=== PATIENT | female | born 1950 | race Caucasian/White ===

== ENCOUNTER 2020-06-07 08:19 | Emergency (ER) | payer MEDICARE, BC ==
[~2020-06-07] VITALS: Ht 162.6 cm; Wt 61.4 kg
[2020-06-07 08:21] VITALS: Ht 162.6 cm; Wt 61.4 kg
[2020-06-07] MEDS ORDERED: APAP325 MG PO (08:42)
[2020-06-07] MEDS ORDERED: BIOFREEZE118 ML TOPICAL (08:43)
[2020-06-07] MEDS ORDERED: ASPIRIN325 MG PO (08:43)
[2020-06-07] MEDS ORDERED: COREG 3.1253.125 MG PO (08:43)
[2020-06-07] MEDS ORDERED: DEPAKOTE500 MG PO (08:44)
[2020-06-07] MEDS ORDERED: KEPPRA500 MG PO (08:44)
[2020-06-07] MEDS ORDERED: MEGACE400 MG/10 PO (08:45)
[2020-06-07] MEDS ORDERED: COZAAR50 MG PO (08:45)
[2020-06-07] MEDS ORDERED: POTASSIUM CHLO10 ME1 PO (08:46)
[2020-06-07] MEDS ORDERED: PROMOD LIQUID P30 M1 PO (08:46)
[2020-06-07] MEDS ORDERED: NAMENDA5 MG PO (08:46)
[2020-06-07] MEDS ORDERED: PEPCID40 MG PO (08:46)
[2020-06-07] MEDS ORDERED: SENNA LAXATIVE8.6 MG PO (08:47)
[2020-06-07] MEDS ORDERED: TOPAMAX100 MG PO (08:47)
[2020-06-07 10:26] VITALS: BP 133/62
== END 2020-06-07 10:27 | disposition home or self-care (01) ==
LOC: D.ER 08:19
DX: S51.012A Laceration without foreign body of left elbow, initial encounter (principal); S00.03XA Contusion of scalp, initial encounter; W19.XXXA Unspecified fall, initial encounter; Y93.9 Activity, unspecified; Y92.129 Unspecified place in nursing home as the place of occurrence of the external cause; I10 Essential (primary) hypertension; K21.9 Gastro-esophageal reflux disease without esophagitis; G30.9 Alzheimer's disease, unspecified; F02.80 Dementia in other diseases classified elsewhere, unspecified severity, without behavioral disturbance, psychotic disturbance, mood disturbance, and anxiety

== ENCOUNTER 2020-06-14 14:57 | Emergency (ER) | payer MEDICARE, BC ==
[~2020-06-14] VITALS: Ht 162.6 cm; Wt 59.1 kg
[~2020-06-14 14:57] MED LIST: APAP325 MG PO; ASPIRIN325 MG PO; BIOFREEZE118 ML TOPICAL; COREG 3.1253.125 MG PO; COZAAR50 MG PO; DEPAKOTE500 MG PO; KEPPRA500 MG PO; MEGACE400 MG/10 PO; NAMENDA5 MG PO; PEPCID40 MG PO; POTASSIUM CHLO10 ME1 PO; PROMOD LIQUID P30 M1 PO; SENNA LAXATIVE8.6 MG PO; TOPAMAX100 MG PO
[2020-06-14 15:02] VITALS: Ht 162.6 cm; Wt 59.1 kg
[2020-06-14 15:55] LABS: BASOPHILS 0.4 % (0-2); EOSINOPHILS 0.5 % (0-7); HEMATOCRIT 41.9 % (36.0-48.0); HEMOGLOBIN 13.7 g/dL (12-16); LYMPHOCYTES 22.1 % (15-50); MCH 32.5 pg (26.0-34.0); MCHC 32.7 g/dL (31.0-37.0); MCV 99.5 fL (80.0-100.0); MEAN PLATELET VOLUME 10.4 fL (7.4-10.4); MONOCYTES 10.6 % (2-11); NEUTROPHILS 64.4 % (40-80); PLATELET COUNT 291 10x3/uL (130-400); RBC 4.21 10x6/uL (4.00-5.40); RDW 12.9 % (11.5-14.5); WBC 10.4 10x3/uL (4.8-10.8)
[2020-06-14 16:01] LABS: CALCIUM 9.6 mg/dL (8.5-10.1); CREATININE - SERUM 1.1 mg/dL (0.6-1.3)
[2020-06-14 16:07] LABS: ALBUMIN 3.2 g/dL (3.4-5.0); BILIRUBIN - TOTAL 0.47 mg/dL (0.2-1.3); PROTEIN - SERUM 6.8 g/dL (6.4-8.2)
[2020-06-14 16:35] LABS: BILIRUBIN NEGATIVE (NEGATIVE); GLUCOSE NEGATIVE (NEGATIVE); KETONE NEGATIVE (NEGATIVE); NITRITE NEGATIVE (NEGATIVE); UROBILINOGEN NORMAL (NORMAL)
[2020-06-14 17:30] VITALS: BP 103/41
== END 2020-06-14 18:36 | disposition home or self-care (01) ==
LOC: D.ER 14:57
PROVIDERS: Family Medicine
DX: S00.83XA Contusion of other part of head, initial encounter (principal); W19.XXXA Unspecified fall, initial encounter; Y93.9 Activity, unspecified; Y92.9 Unspecified place or not applicable; I10 Essential (primary) hypertension; G30.9 Alzheimer's disease, unspecified; F02.80 Dementia in other diseases classified elsewhere, unspecified severity, without behavioral disturbance, psychotic disturbance, mood disturbance, and anxiety

== ENCOUNTER 2020-07-11 11:12 | Emergency (ER) | payer MEDICARE, BC ==
[~2020-07-11] VITALS: Ht 162.6 cm; Wt 54.5 kg
[2020-07-11 11:18] VITALS: Ht 162.6 cm; Wt 54.5 kg
[2020-07-11 12:36] LABS: BASOPHILS 0.2 % (0-2); EOSINOPHILS 1.9 % (0-7); HEMATOCRIT 39.7 % (36.0-48.0); HEMOGLOBIN 12.8 g/dL (12-16); IMMATURE GRANULOCYTES 0.6 % (0-5); LYMPHOCYTES 32.3 % (15-50); MCHC 32.2 g/dL (31.0-37.0); MCV 99.3 fL (80.0-100.0); MEAN PLATELET VOLUME 11.1 fL (7.4-10.4); MONOCYTES 7.6 % (2-11); NEUTROPHILS 57.4 % (40-80); RDW 12.8 % (11.5-14.5); WBC 8.6 10x3/uL (4.8-10.8)
[2020-07-11 12:53] LABS: ALBUMIN 2.7 g/dL (3.4-5.0); ALKALINE PHOSPHATASE 131 U/L (30-120); ALT (SGPT) 9 U/L (10-68); BILIRUBIN - TOTAL 0.46 mg/dL (0.2-1.3); CALC OSMOLALITY 274 mosm/kg (275-300); CHLORIDE - SERUM 108 mmol/L (98-107); CREATININE - SERUM 0.8 mg/dL (0.6-1.3); GLUCOSE 82 mg/dL (74-106); POTASSIUM - SERUM 3.5 mmol/L (3.5-5.1); PROTEIN - SERUM 6.7 g/dL (6.4-8.2); SODIUM 138 mmol/L (136-145); UREA NITROGEN 12 mg/dL (7-18); eGFR NON AFRICAN AMERICAN 75 mL/min (90-120)
[2020-07-11 13:10] LABS: PLATELET COUNT 182 10x3/uL (130-400)
[2020-07-11 14:05] LABS: BILIRUBIN NEGATIVE (NEGATIVE); KETONE NEGATIVE (NEGATIVE); NITRITE NEGATIVE (NEGATIVE); UROBILINOGEN NORMAL (NORMAL)
[2020-07-11 14:07] LABS: BACTERIA MODERATE /hpf (NONE SEEN); EPITHELIAL CELLS OCC /hpf (0-5); HYALINE CAST NONE SEEN /lpf (NONE SEEN); RED CELLS - URINE RARE /hpf (0-5); WHITE CELLS - URINE 0-5 /hpf (0-5)
[2020-07-11] MEDS ORDERED: KEFLEX500 MG PO (14:16)
[2020-07-11] MEDS ORDERED: MACROBID100 MG PO (14:16)
[2020-07-11 15:14] VITALS: BP 114/73
== END 2020-07-11 15:16 ==
LOC: D.ER 11:12
PROVIDERS: Emergency Medicine
DX: N39.0 Urinary tract infection, site not specified (principal); M54.2 Cervicalgia; W18.30XA Fall on same level, unspecified, initial encounter; I10 Essential (primary) hypertension; F03.90 Unspecified dementia, unspecified severity, without behavioral disturbance, psychotic disturbance, mood disturbance, and anxiety

== ENCOUNTER 2021-02-23 14:40 | Emergency (ER) | payer MEDICARE, BC ==
[~2021-02-23] VITALS: Ht 162.6 cm; Wt 77.3 kg
[~2021-02-23 14:40] MED LIST changes: +KEFLEX500 MG PO; +MACROBID100 MG PO; +TYLENOL W/CODEI1 TAB PO
[2021-02-23 14:42] VITALS: Ht 162.6 cm; Wt 77.3 kg
[2021-02-23] MEDS ORDERED: BUSPAR10 MG PO (14:52)
[2021-02-23] MEDS ORDERED: NUEDEXTA 20-101 EACH PO (14:52)
[2021-02-23] MEDS ORDERED: REMERON15 MG PO (14:52)
[2021-02-23 16:00] LABS: BASOPHILS 0.3 % (0-2); EOSINOPHILS 1.2 % (0-7); HEMOGLOBIN 13.2 g/dL (12-16); IMMATURE GRANULOCYTES 0.3 % (0-5); LYMPHOCYTE ABS# 2.69 10x3/uL (1.18-3.74); LYMPHOCYTES 35.3 % (15-50); MCH 30.8 pg (26.0-34.0); MCHC 33.8 g/dL (31.0-37.0); MCV 90.9 fL (80.0-100.0); MEAN PLATELET VOLUME 10.9 fL (7.4-10.4); MONOCYTES 6.2 % (2-11); NEUTROPHIL ABS# 4.33 10x3/uL (1.56-6.13); NEUTROPHILS 56.7 % (40-80); PLATELET COUNT 234 10x3/uL (130-400); RBC 4.29 10x6/uL (4.00-5.40); RDW 12.7 % (11.5-14.5); WBC 7.6 10x3/uL (4.8-10.8)
[2021-02-23 16:02] LABS: CALC OSMOLALITY 284 mosm/kg (275-300); CALCIUM 9.2 mg/dL (8.5-10.1); CARBON DIOXIDE 27.5 mmol/L (21.0-32.0); CHLORIDE - SERUM 109 mmol/L (98-107); CREATININE - SERUM 0.9 mg/dL (0.6-1.3); GLUCOSE 107 mg/dL (74-106); POTASSIUM - SERUM 3.9 mmol/L (3.5-5.1); SODIUM 143 mmol/L (136-145); UREA NITROGEN 12 mg/dL (7-18); eGFR NON AFRICAN AMERICAN 65 mL/min (90-120)
[2021-02-23 16:09] LABS: ALBUMIN 3.3 g/dL (3.4-5.0); ALKALINE PHOSPHATASE 66 U/L (30-120); ALT (SGPT) 10 U/L (10-68); BILIRUBIN - TOTAL 0.28 mg/dL (0.2-1.3); MAGNESIUM - SERUM 2.1 mg/dL (1.8-2.4); PROTEIN - SERUM 6.6 g/dL (6.4-8.2)
[2021-02-23 16:12] LABS: VALPROIC ACID (DEPAKOTE) < 3.0 ug/mL (50.0-100.0)
[2021-02-23 16:55] LABS: UDS - AMPHET NEGATIVE QUAL (NEGATIVE); UDS - BARB NEGATIVE QUAL (NEGATIVE); UDS - BENZO NEGATIVE QUAL (NEGATIVE); UDS - COCAINE NEGATIVE QUAL (NEGATIVE); UDS - OPIATE NEGATIVE QUAL (NEGATIVE); UDS - PCP NEGATIVE QUAL (NEGATIVE); UDS - THC NEGATIVE QUAL (NEGATIVE)
[2021-02-23 16:57] LABS: BILIRUBIN NEGATIVE (NEGATIVE); KETONE NEGATIVE (NEGATIVE); NITRITE NEGATIVE (NEGATIVE); UROBILINOGEN NORMAL mg/dL (< 2)
[2021-02-23 16:58] LABS: AMORPHOUS SEDIMENT <1+ LPF (NONE SEEN); BACTERIA MODERATE HPF (NONE SEEN); SQUAMOUS EPITHELIAL 0-5 HPF (0-4)
[2021-02-23] MEDS ORDERED: MACROBID100 MG PO (17:05)
[2021-02-23] MEDS ORDERED: CEPHALEXIN500 M1 PO (17:05)
[2021-02-23 17:40] VITALS: BP 152/77
== END 2021-02-23 17:44 ==
LOC: D.ER 14:40
PROVIDERS: Family Medicine
DX: R56.9 Unspecified convulsions (principal); N39.0 Urinary tract infection, site not specified; I10 Essential (primary) hypertension; G30.9 Alzheimer's disease, unspecified; F02.80 Dementia in other diseases classified elsewhere, unspecified severity, without behavioral disturbance, psychotic disturbance, mood disturbance, and anxiety

== ENCOUNTER 2021-04-25 13:08 | Inpatient (IN) | payer MEDICARE ==
[~2021-04-25] VITALS: Ht 162.6 cm; Wt 54.5 kg
[~2021-04-25 13:08] MED LIST changes: +BUSPAR10 MG PO; +CEPHALEXIN500 M1 PO; +NUEDEXTA 20-101 EACH PO; +REMERON15 MG PO
[2021-04-25 13:32] VITALS: BP 107/58
--- NOTE | 2021-04-25 13:58 | NUR ---
POC GLUCOSE 86. PATIENT RESPONDED WITH "OH" WHEN STUCK WITH THE LANCET.
[2021-04-25 14:12] LABS: BASOPHILS 0.3 % (0-2); EOSINOPHILS 1.8 % (0-7); HEMATOCRIT 41.1 % (36.0-48.0); HEMOGLOBIN 13.4 g/dL (12-16); LYMPHOCYTES 29.1 % (15-50); MCH 30.9 pg (26.0-34.0); MCHC 32.7 g/dL (31.0-37.0); MCV 94.4 fL (80.0-100.0); MEAN PLATELET VOLUME 10.1 fL (7.4-10.4); MONOCYTES 6.3 % (2-11); NEUTROPHILS 62.5 % (40-80); RBC 4.35 10x6/uL (4.00-5.40); RDW 14.9 % (11.5-14.5); WBC 12.1 10x3/uL (4.8-10.8)
[2021-04-25 14:17] LABS: PLATELET COUNT 156 10x3/uL (130-400)
[2021-04-25 14:20] LABS: CALC OSMOLALITY 297 mosm/kg (275-300); CALCIUM 9.3 mg/dL (8.5-10.1); CARBON DIOXIDE 28.5 mmol/L (21.0-32.0); CHLORIDE - SERUM 114 mmol/L (98-107); CREATININE - SERUM 0.7 mg/dL (0.6-1.3); GLUCOSE 94 mg/dL (74-106); POTASSIUM - SERUM 3.7 mmol/L (3.5-5.1); SODIUM 148 mmol/L (136-145); UREA NITROGEN 24 mg/dL (7-18); eGFR NON AFRICAN AMERICAN 87 mL/min (90-120)
[2021-04-25 14:36] LABS: ALBUMIN 2.5 g/dL (3.4-5.0); ALKALINE PHOSPHATASE 66 U/L (30-120); ALT (SGPT) 9 U/L (10-68); BILIRUBIN - TOTAL 0.27 mg/dL (0.2-1.3); CREATINE KINASE 18 UL (21-215); MAGNESIUM - SERUM 2.5 mg/dL (1.8-2.4); PROTEIN - SERUM 6.1 g/dL (6.4-8.2); THYROID STIMULATING HORMONE 2.38 uIU/mL (0.36-3.74); TROPONIN-I < 0.017 ng/mL (0.000-0.060)
[2021-04-25 15:31] LABS: APTT 21.1 SECONDS (22.8-39.4); INR 1.07 (0.85-1.17); PROTIME 12.8 SECONDS (11.6-15.0)
[2021-04-25 16:21] LABS: UDS - AMPHET NEGATIVE QUAL (NEGATIVE); UDS - BARB NEGATIVE QUAL (NEGATIVE); UDS - BENZO NEGATIVE QUAL (NEGATIVE); UDS - COCAINE NEGATIVE QUAL (NEGATIVE); UDS - OPIATE NEGATIVE QUAL (NEGATIVE); UDS - PCP NEGATIVE QUAL (NEGATIVE); UDS - THC NEGATIVE QUAL (NEGATIVE)
[2021-04-25 16:35] LABS: BACTERIA MOD HPF (<MOD); BILIRUBIN NEGATIVE (NEGATIVE); KETONE NEGATIVE mg/dL (< 1+); NITRITE POSITIVE (NEGATIVE); UROBILINOGEN NORMAL mg/dL (< 2); WHITE CELLS - URINE >182 HPF (0-4)
[2021-04-25 19:00] VITALS: BP 128/59
[2021-04-25 20:00] VITALS: BP 135/51
[2021-04-25 21:00] VITALS: BP 134/66
[2021-04-25 22:00] VITALS: BP 138/54
--- NOTE | 2021-04-25 22:08 | NUR ---
PT LYING SUPINE IN BED AT THIS TIME. PT PROVIDED WITH WATER UPON REQUEST. PT RE ADJUSTED IN BED TO A POSITION OF COMFORT. PT DENIES FURTHER NEEDS AT THIS TIME.
[2021-04-25 23:00] VITALS: BP 123/56
[2021-04-26] VITALS (9 sets, daily range): BP systolic 99–135; BP diastolic 47–67; Ht 162.6 cm; Wt 54.5 kg
--- NOTE | 2021-04-26 01:21 | NUR ---
PT REPOSITIONED TO A POSITION OF COMFORT AT THIS TIME. PT DENIES FURTHER NEEDS AT THIS TIME.
--- NOTE | 2021-04-26 03:26 | NUR ---
PT REPOSITIONED ON TO LEFT SIDE A THIS TIME. NO ACUTE DISTRESS NOTED, PT DENIES OTHER COMPLAINTS AT THIS TIME.
--- NOTE | 2021-04-26 05:52 | NUR ---
PT REPOSITIONED AT THIS TIME. NO ACUTE DISTRESS NOTED, BED IN LOWEST POSITION, CALL LIGHT WITHIN REACH
[2021-04-26 07:55] LABS: BASOPHILS 0.5 % (0-2); EOSINOPHILS 2.2 % (0-7); HEMATOCRIT 37.4 % (36.0-48.0); HEMOGLOBIN 12.3 g/dL (12-16); LYMPHOCYTES 30.6 % (15-50); MCH 30.8 pg (26.0-34.0); MCV 93.4 fL (80.0-100.0); MEAN PLATELET VOLUME 10.2 fL (7.4-10.4); MONOCYTES 6.7 % (2-11); PLATELET COUNT 165 10x3/uL (130-400)
[2021-04-26 08:11] LABS: CALC OSMOLALITY 292 mosm/kg (275-300); CALCIUM 9.1 mg/dL (8.5-10.1); CARBON DIOXIDE 27.6 mmol/L (21.0-32.0); CHLORIDE - SERUM 112 mmol/L (98-107); CREATININE - SERUM 0.6 mg/dL (0.6-1.3); GLUCOSE 86 mg/dL (74-106); POTASSIUM - SERUM 3.7 mmol/L (3.5-5.1); SODIUM 146 mmol/L (136-145); UREA NITROGEN 20 mg/dL (7-18); VALPROIC ACID (DEPAKOTE) 46.9 ug/mL (50.0-100.0); eGFR NON AFRICAN AMERICAN > 90 mL/min (90-120)
[2021-04-26 08:13] LABS: WBC 8.3 10x3/uL (4.8-10.8)
--- NOTE | 2021-04-26 09:34 | NUR ---
914: TOOK PATIENT MEAL TRAY AND MEDICATIONS INTO ROOM, PATIENT RESPONED TO LOUD NOISES, ASKED PATIENT IF I CAOULD ASSIST HER WITH EATING BREAKFAST AND SHE STATES NO, ASKED IF SHE WOULD TAKE HER MORNING MEDICATION AND SHE STATED NO, TRY TO EDUCATE/TELL HER THE IMPORTANCE OF HER MEDCIATIONS AND HER TAKING THEM AND THE WHOLE TIME I TALKED SHE JUST REPEATED HER SELF AND SAID NO OVER AND OVER. 931: TRIED TO PASS MEDICATIONS AGAIN, PATIENT AGAIN REPEATED NO OVER AND OVER
--- NOTE | 2021-04-26 09:51 | NUR ---
TALKED TO REHANA OLIVA TO NOTIFY THAT PATIENT IS REFUSING TO TAKE MEDICATIONS AND EAT THIS MORNING
[2021-04-27] VITALS: BP 128/64
--- NOTE | 2021-04-27 02:25 | NUR ---
PT MORE AROUSABLE, ANSWERS SOME QUESTIONS WITH MORE THEN 1 WORD REPLIES, QUIQUE PAIN OR DISCOMFORT.
[2021-04-27 04:00] VITALS: BP 177/66
[2021-04-27 08:44] VITALS: BP 150/63
--- NOTE | 2021-04-27 08:50 | NUR ---
PATIENT AAOX3 RESP EVEN AND NON LABORED, NO S/S OF DISTRESS, MEDICATIONS ADMINISTERED WITH NO COMPLICATIONS, PATIENT SWALLOWS PILLS VERY WELL, BREAKFAST CUT UP AND MILK AND COFFEE OPENED FOR PATIENT, NO FURTHER NEEDS AT THIS TIME, NIKITA GUZMAN
[2021-04-27 13:08] VITALS: BP 117/63
[2021-04-27 16:56] VITALS: BP 115/55
[2021-04-27 20:22] VITALS: BP 120/54
[2021-04-28 01:38] VITALS: BP 126/44
[2021-04-28 05:26] LABS: BASOPHILS 0.5 % (0-2); EOSINOPHILS 3.3 % (0-7); HEMATOCRIT 37.5 % (36.0-48.0); HEMOGLOBIN 12.5 g/dL (12-16); LYMPHOCYTES 41.5 % (15-50); MCHC 33.3 g/dL (31.0-37.0); MCV 93.3 fL (80.0-100.0); MONOCYTES 7.2 % (2-11); NEUTROPHILS 47.5 % (40-80); PLATELET COUNT 191 10x3/uL (130-400); RBC 4.03 10x6/uL (4.00-5.40); RDW 14.6 % (11.5-14.5); WBC 7.1 10x3/uL (4.8-10.8)
[2021-04-28 05:45] LABS: ANION GAP 10.4 mmol/L (8-16); CALCIUM 8.6 mg/dL (8.5-10.1); CARBON DIOXIDE 28.6 mmol/L (21.0-32.0)
[2021-04-28 05:50] LABS: CREATININE - SERUM 0.8 mg/dL (0.6-1.3)
[2021-04-28 06:37] VITALS: BP 148/49
--- NOTE | 2021-04-28 07:00 | NUR ---
PT LYING IN BED WITH EYES CLOSED AND HOB ELEVATED 30 DEGREES. RESP EVEN AND UNLABORED. RAISES TO VERBAL AND TACTILE STIMULI. NO DISTRESS NOTED. CLIR. BED IN LOWEST POSITION. SIDE RAILS X2
--- NOTE | 2021-04-28 12:10 | NUR ---
Nutrition Follow-up: Pt confused. Breakfast tray appeared untouched. Diet: Regular No PO intake recorded No new wt; last wt: 120# (04/26) Labs reviewed Meds noted: Remeron, Pepcid, electrolyte protocol -Encourage PO intake and honor food preferences. -+Ensure with meals. -Monitor wt. -RD will follow up within 3-4 days.
[2021-04-28 12:30] VITALS: BP 114/60
[2021-04-28 20:20] VITALS: BP 117/51
[2021-04-29 00:51] VITALS: BP 132/55
--- NOTE | 2021-04-29 03:28 | NUR ---
I have reviewed this patient and I concur with the Shift Assessment completed by the Licensed Practical Nurse today this shift.
[2021-04-29 05:13] LABS: BASOPHILS 0.3 % (0-2); EOSINOPHILS 2.6 % (0-7); HEMATOCRIT 33.8 % (36.0-48.0); HEMOGLOBIN 11.5 g/dL (12-16); LYMPHOCYTES 43.9 % (15-50); MCH 31.3 pg (26.0-34.0); MCHC 34.1 g/dL (31.0-37.0); MEAN PLATELET VOLUME 9.4 fL (7.4-10.4); NEUTROPHILS 47.2 % (40-80); PLATELET COUNT 208 10x3/uL (130-400); RBC 3.67 10x6/uL (4.00-5.40); RDW 14.2 % (11.5-14.5); WBC 7.3 10x3/uL (4.8-10.8)
[2021-04-29 05:27] LABS: CALC OSMOLALITY 282 mosm/kg (275-300); CALCIUM 8.7 mg/dL (8.5-10.1); CARBON DIOXIDE 26.2 mmol/L (21.0-32.0); CHLORIDE - SERUM 108 mmol/L (98-107); CREATININE - SERUM 0.6 mg/dL (0.6-1.3); GLUCOSE 78 mg/dL (74-106); POTASSIUM - SERUM 3.2 mmol/L (3.5-5.1); SODIUM 142 mmol/L (136-145); UREA NITROGEN 16 mg/dL (7-18); eGFR NON AFRICAN AMERICAN > 90 mL/min (90-120)
[2021-04-29 06:05] VITALS: BP 122/54
--- NOTE | 2021-04-29 07:00 | NUR ---
RECEIVED REPORT. ASSUMED CARE OF PATIENT. PATIENT RESTING PEACEFULLY WITH EYES CLOSED ON LEFT LATERAL SIDE. RESP EVEN AND UNLABORED. WHITE BOARD UPDATED, BEDSIDE SHIFT REPORT COMPLETE. NO DISTRESS.
[2021-04-29 08:00] VITALS: BP 113/52
[2021-04-29] MEDS ORDERED: DIFLUCAN100 MG PO (10:43)
[2021-04-29] MEDS ORDERED: ROCEPHIN 1 GM/D51 G1 IM ×2 (10:44→10:50)
[2021-04-29] MEDS ORDERED: TOPAMAX100 MG PO (10:46)
--- NOTE | 2021-04-29 12:23 | NUR ---
[facility] WILL BE HERE BETWEEN 1-2 TO PICK PATEINT UP.
--- NOTE | 2021-04-29 12:37 | NUR ---
22 GAUGE IV REMOVED FROM LEFT WRIST. CATHETER TIP INTACT. NO BLEEDING FROM SITE. 2X2 GAUZE APPLIED AND SECURED WITH BANDAID. PATIENT TOLERATED IV REMOVAL WELL.
--- NOTE | 2021-04-29 12:37 | NUR ---
PATIENT REFUSING NOON MEAL. ALTERNATIVE AND MEAL SUPPLEMENTAL DRINKS OFFERED, PATIENT REFUSED.
--- NOTE | 2021-04-29 15:20 | NUR ---
REPORT CALLED TO SAUNDRA AT [facility]. 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 CASE MANAGEMENT CALLED TO CLARIFY SO CT DOES NOT GET CHARGED AMBULANCE FEE. WAITING ON CASE MANAGEMENT TO RETURN CALL.
--- NOTE | 2021-04-29 15:30 | NUR ---
INCONTINENT CARES PROVIDED.
--- NOTE | 2021-04-29 15:49 | NUR ---
[facility] CALLED FOR TRANSPORT, ETA 30 MINUTES.
--- NOTE | 2021-04-29 16:28 | NUR ---
EMS HERE TO TRANSPORT PT BACK TO [place]. CALLED SAUNDRA AND LET HER KNOW THAT PATIENT IS BEING PICKED UP BY EMS NOW.
--- NOTE | 2021-04-29 16:35 | NUR ---
PATIENT LEFT UNIT VIA [facility] WITH 2 [employer] ATTENDANTS. PATIENT RETURNING TO [facility]. NO DISTRESS UPON LEAVING UNIT.
== END 2021-04-29 16:36 | DRG 689 ==
LOC: D.ER 13:08 → D.EDHOLD 17:00 → D.M2 17:00
PROVIDERS: Emergency Medicine; ADMIT Family Medicine; ATTEND Family Medicine
DX: N39.0 Urinary tract infection, site not specified (principal); G93.41 Metabolic encephalopathy; E87.0 Hyperosmolality and hypernatremia; I10 Essential (primary) hypertension; F03.90 Unspecified dementia, unspecified severity, without behavioral disturbance, psychotic disturbance, mood disturbance, and anxiety; K21.9 Gastro-esophageal reflux disease without esophagitis; F41.9 Anxiety disorder, unspecified; E86.0 Dehydration; G40.909 Epilepsy, unspecified, not intractable, without status epilepticus